=== PATIENT | male | born 1955 | race Two or more races ===

== ENCOUNTER 2021-07-06 06:49 | Inpatient (IN) | payer OTHER ==
[2021-07-06] MEDS ORDERED: GENTAMICIN SO4 80 MG/2 ML VIAL ONE ×2 (07:20→12:44)
[2021-07-06] MEDS ORDERED: LIDOCAINE HCL 1% EPINEPHRINE 1:200,000 30 ML VIAL (PF) ONE ×2 (07:21→10:00)
[2021-07-06] MEDS ORDERED: THROMBIN (BOVINE) 20,000 UNIT VIAL TP ONE ×2 (07:21→12:00)
[2021-07-06] MEDS ORDERED: PROPOFOL 20 ML ONE (08:05)
[2021-07-06] MEDS ORDERED: fentaNYL CITRATE 250 MCG/5 ML VIAL ONE (08:05)
[2021-07-06] MEDS ORDERED: SUCCINYLCHOLINE CHLORIDE 200 MG/10 ML SYRINGE ONE (08:06)
[2021-07-06] MEDS ORDERED: MIDAZOLAM HCL 2 MG/2 ML SINGLE DOSE VIAL ONE (08:07)
[2021-07-06] MEDS ORDERED: ACETAMINOPHEN INJECTION 100 ML IVPB ONE (08:09)
[2021-07-06] MEDS ORDERED: PROMETHAZINE HCL 25 MG/1 ML VIAL IVPB PRN (08:23)
[2021-07-06] MEDS ORDERED: ONDANSETRON 4 MG/2 ML VIAL IVPUSH PRN ×2 (08:23→14:36)
[2021-07-06] MEDS ORDERED: LACTATED RINGERS SOLUTION 1,000 ML IV SCH (08:30)
[2021-07-06] MEDS ORDERED: HYDROGEN PEROXIDE 473 ML PO ONE ×2 (08:33→09:20)
[2021-07-06] MEDS ORDERED: GENTAMICIN SO4 80 MG/2 ML VIAL IVPB ONE ×2 (08:33→09:20)
[2021-07-06] MEDS ORDERED: VANCOMYCIN 1,000 MG VIAL (RESTRICTED TO ID ONLY) IVPB ONE (09:15)
[2021-07-06] MEDS ORDERED: ceFAZolin SODIUM 1 GM VIAL IVPB ONE ×2 (09:15→13:15)
[2021-07-06] MEDS ORDERED: ROCURONIUM BROMIDE 50 MG/5 ML SYRINGE ONE ×2 (09:17→11:58)
[2021-07-06] MEDS ORDERED: LIDOCAINE HCL 0.5% EPINEPHRINE 1:200,000 50 ML VIAL IJ ONE (09:20)
[2021-07-06] MEDS ORDERED: KETAMINE HCL 200 MG/20 ML VIAL ONE (09:21)
[2021-07-06] MEDS ORDERED: BACITRACIN 15 GM TUBE TOPICAL OINTMENT ONE (09:41)
[2021-07-06] MEDS ORDERED: FAMOTIDINE 20 MG/50 ML IVPB 20 MG/50 ML MG IVPB ONE (10:00)
[2021-07-06] MEDS ORDERED: HYDROmorphone HCl 2 MG/ML VIAL ONE (10:34)
[2021-07-06] MEDS ORDERED: THROMBIN (BOVINE) 5,000 UNIT VIAL TP ONE (10:35)
[2021-07-06] MEDS ORDERED: PHENYLEPHRINE HCL 10 MG/1 ML SINGLE DOSE VIAL IVPB ONE (11:30)
[2021-07-06] MEDS ORDERED: NEOSTIGMINE METHYLSULFATE 0.5 MG/1 ML - 10 ML MDV ONE (12:45)
[2021-07-06] MEDS ORDERED: BUPIVACAINE LIPOSOME/PF (EXPAREL) 266 MG/20 ML VIAL ONE (12:51)
[2021-07-06] MEDS ORDERED: BUPIVACAINE HCL/PF 0.5% (5MG/ML) 10 ML VIAL ONE (12:52)
[2021-07-06] MEDS ORDERED: BUPIVACAINE HCL/PF 0.25% (2.5MG/ML) 10 ML VIAL ONE (12:52)
[2021-07-06] MEDS ORDERED: BUPIVACAINE LIPOSOME/PF (EXPAREL) 266 MG/20 ML VIAL NR ONE (13:45)
[2021-07-06] MEDS ORDERED: BUPIVACAINE HCL/PF 0.5% (5 MG/ML) 30 ML VIAL IJ ONE (13:45)
[2021-07-06] MEDS ORDERED: HYDROmorphone *PCA* 10MG/50ML DISP.SYRIN PCA SCH (14:30)
[2021-07-06] MEDS ORDERED: oxyCODONE HCL 5 MG TABLET PO PRN ×2 (14:36→16:00)
[2021-07-06] MEDS ORDERED: DEXAMETHASONE SOD PHOSPHATE 10 MG/1 ML VIAL IVPUSH ONE ×2 (14:36→15:45)
[2021-07-06] MEDS ORDERED: HYDROmorphone HCl 2 MG/ML VIAL SQ PRN (14:36)
[2021-07-06] MEDS ORDERED: HYDROmorphone *PCA* 10MG/50ML DISP.SYRIN PCA ONE (15:15)
[2021-07-06] MEDS ORDERED: DEXAMETHASONE SOD PHOSPHATE 10 MG/1 ML VIAL ONE (15:47)
[2021-07-06] MEDS: LACTATED RINGERS SOLUTION 1,000 ML IV SCH ×2 (18:01→23:07)
[2021-07-06] MEDS: CEFAZOLIN 2 GM in DEXTROSE 5%-WATER - 100 ML IVPB SCH (20:15)
[2021-07-06] MEDS: TIZANIDINE HCL 2 MG TABLET PO SCH (23:02)
[2021-07-06] MEDS: PREGABALIN 100 MG CAPSULE PO SCH (23:02)
[2021-07-07] MEDS: CEFAZOLIN 2 GM in DEXTROSE 5%-WATER - 100 ML IVPB SCH ×2 (02:31→06:55)
[2021-07-07] MEDS: PREGABALIN 100 MG CAPSULE PO SCH ×3 (06:55→21:26)
[2021-07-07] MEDS: LACTATED RINGERS SOLUTION 1,000 ML IV SCH ×2 (06:58→15:34)
[2021-07-07] MEDS ORDERED: PT OWN MED DRAWER 7, Y5N ONE (09:35)
[2021-07-07 11:18] LABS: HEMATOCRIT 31.4 % (35.4-49); HEMOGLOBIN 10.8 GM/dL (11.7-16.9); MCH 31.3 pg (25.7-33.7); MCHC 34.4 g/dl (32.0-35.9); MEAN CELL VOLUME 91.1 fl (80-96); PLATELET COUNT 235 10^3/uL (134-434); RBC 3.45 M/mm3 (4.00-5.60); RDW 12.6 % (11.9-15.9); WHITE BLOOD COUNT 15.7 K/mm3 (4.0-10.0)
[2021-07-07] MEDS: DOCUSATE SODIUM 100 MG CAPSULE (FP) PO SCH ×2 (11:36→21:26)
[2021-07-07] MEDS: CARVEDILOL 6.25 MG TABLET (FP) PO SCH (11:37)
[2021-07-07] MEDS: LOSARTAN POTASSIUM 50 MG TABLET PO SCH (11:37)
[2021-07-07] MEDS: FAMOTIDINE 20 MG TABLET PO SCH (11:37)
[2021-07-07] MEDS: TIZANIDINE HCL 2 MG TABLET PO SCH ×2 (11:38→21:26)
[2021-07-07 11:42] LABS: BLOOD UREA NITROGEN 25.6 mg/dL (7-18); MAGNESIUM 1.5 mg/dL (1.8-2.4)
[2021-07-07 11:45] LABS: CREATININE 1.2 mg/dL (0.55-1.3); PHOSPHOROUS 3.2 mg/dL (2.5-4.9)
[2021-07-07 11:46] LABS: BILIRUBIN,TOTAL 0.4 mg/dL (0.2-1); TOT PROT 5.6 g/dl (6.4-8.2)
[2021-07-07 11:49] LABS: ALBUMIN 2.9 g/dl (3.4-5.0)
[2021-07-07] MEDS ORDERED: ACETAMINOPHEN 1000 MG/100 ML VIAL IVPB PRN ×2 (13:30→13:31)
[2021-07-07] MEDS ORDERED: MAGNESIUM 2GM/50ML STERILE WATER IVPB IVPB ONE (15:00)
[2021-07-07] MEDS ORDERED: HYDROmorphone *PCA* 10MG/50ML DISP.SYRIN PCA SCH (18:15)
[2021-07-07] MEDS: oxyCODONE HCL 5 MG TABLET PO PRN (21:26)
[2021-07-08] MEDS: oxyCODONE HCL 5 MG TABLET PO PRN ×4 (02:33→21:20)
[2021-07-08] MEDS: BENZOCAINE/MENTH/CETYLPYRD CL 1 EACH LOZENGE MM PRN ×2 (02:34→15:20)
[2021-07-08] MEDS: PREGABALIN 100 MG CAPSULE PO SCH ×3 (06:06→21:19)
[2021-07-08 07:49] LABS: HEMATOCRIT 27.6 % (35.4-49); HEMOGLOBIN 9.4 GM/dL (11.7-16.9); MCH 31.2 pg (25.7-33.7); MCHC 34.2 g/dl (32.0-35.9); MEAN CELL VOLUME 91.2 fl (80-96); MEAN PLT VOLUME 8.2 fl (7.5-11.1); PLATELET COUNT 168 10^3/uL (134-434); RBC 3.02 M/mm3 (4.00-5.60); RDW 12.8 % (11.9-15.9); WHITE BLOOD COUNT 9.8 K/mm3 (4.0-10.0)
[2021-07-08 08:06] LABS: BLOOD UREA NITROGEN 16.3 mg/dL (7-18); CALCIUM 7.9 mg/dL (8.5-10.1)
[2021-07-08 08:07] LABS: ALBUMIN 2.7 g/dl (3.4-5.0); MAGNESIUM 2.3 mg/dL (1.8-2.4)
[2021-07-08 08:09] LABS: CREATININE 0.9 mg/dL (0.55-1.3)
[2021-07-08 08:10] LABS: PHOSPHOROUS 1.6 mg/dL (2.5-4.9)
[2021-07-08 08:11] LABS: BILIRUBIN,TOTAL 0.7 mg/dL (0.2-1); TOT PROT 5.1 g/dl (6.4-8.2)
[2021-07-08] MEDS: LOSARTAN POTASSIUM 50 MG TABLET PO SCH (10:36)
[2021-07-08] MEDS: SENNOSIDES 8.6MG TABLET (FP) PO SCH ×2 (10:36→21:19)
[2021-07-08] MEDS: TIZANIDINE HCL 2 MG TABLET PO SCH ×2 (10:36→21:20)
[2021-07-08] MEDS: DOCUSATE SODIUM 100 MG CAPSULE (FP) PO SCH ×2 (10:36→21:19)
[2021-07-08] MEDS: FAMOTIDINE 20 MG TABLET PO SCH (10:37)
[2021-07-08] MEDS: POLYETHYLENE GLYCOL (HEALTHYLAX) 3350 17 GM PACKET PO SCH ×2 (10:37→21:19)
[2021-07-08] MEDS: CARVEDILOL 6.25 MG TABLET (FP) PO SCH (10:37)
[2021-07-08] MEDS: NAPH,MB-DB/K PH,MBDB POWDER PACKET PO SCH ×3 (10:37→21:20)
[2021-07-08 10:42] LABS: VENOUS O2 SATURATION 71.5 % (70-80); VENOUS PCO2 50.9 mmHg (38-52); VENOUS PH 7.386 (7.310-7.410)
[2021-07-08] MEDS ORDERED: oxyCODONE HCL 5 MG TABLET PO PRN (13:20)
[2021-07-08] MEDS ORDERED: IRON SUCROSE INJECTION 200 MG in SODIUM CHLORIDE 90 ML IVPB ONE (15:00)
[2021-07-08] MEDS: HEPARIN NA (PORCINE) 5,000 UNITS/ML 1ML VIAL SQ SCH ×2 (15:20→21:20)
[2021-07-08] MEDS: CEFAZOLIN 1 GM in DEXTROSE 5%-WATER - 1 GM/50 ML IVPB IVPB SCH (18:00)
[2021-07-08] MEDS ORDERED: DEXTROSE 5%-WATER - 50 ML IVPB ONE (18:13)
[2021-07-08] MEDS ORDERED: ceFAZolin SODIUM 1 GM VIAL ONE (18:13)
[2021-07-09] MEDS: CEFAZOLIN 1 GM in DEXTROSE 5%-WATER - 1 GM/50 ML IVPB IVPB SCH ×2 (02:49→09:02)
[2021-07-09] MEDS ORDERED: ceFAZolin SODIUM 1 GM VIAL ONE ×3 (05:07→16:48)
[2021-07-09] MEDS ORDERED: DEXTROSE 5%-WATER - 50 ML IVPB ONE ×3 (05:08→16:48)
[2021-07-09] MEDS: HEPARIN NA (PORCINE) 5,000 UNITS/ML 1ML VIAL SQ SCH ×3 (06:26→21:18)
[2021-07-09] MEDS: oxyCODONE HCL 5 MG TABLET PO PRN (06:27)
[2021-07-09] MEDS: PREGABALIN 100 MG CAPSULE PO SCH ×3 (06:27→21:05)
[2021-07-09] MEDS: NAPH,MB-DB/K PH,MBDB POWDER PACKET PO SCH ×3 (06:27→21:05)
[2021-07-09 08:34] LABS: HEMATOCRIT 26.3 % (35.4-49); HEMOGLOBIN 9.2 GM/dL (11.7-16.9); MCH 31.9 pg (25.7-33.7); MEAN PLT VOLUME 7.8 fl (7.5-11.1); PLATELET COUNT 175 10^3/uL (134-434); RBC 2.89 M/mm3 (4.00-5.60); RDW 12.8 % (11.9-15.9); WHITE BLOOD COUNT 9.6 K/mm3 (4.0-10.0)
[2021-07-09] MEDS ORDERED: SODIUM PHOSPHATE/NA BIPHOS 133 ML ENEMA RC ONE (09:00)
[2021-07-09] MEDS: DOCUSATE SODIUM 100 MG CAPSULE (FP) PO SCH ×2 (09:02→21:05)
[2021-07-09] MEDS: POLYETHYLENE GLYCOL (HEALTHYLAX) 3350 17 GM PACKET PO SCH ×2 (09:02→21:05)
[2021-07-09] MEDS: TIZANIDINE HCL 2 MG TABLET PO SCH ×2 (09:02→21:05)
[2021-07-09] MEDS: FAMOTIDINE 20 MG TABLET PO SCH (09:02)
[2021-07-09] MEDS: LOSARTAN POTASSIUM 50 MG TABLET PO SCH (09:02)
[2021-07-09] MEDS: CARVEDILOL 6.25 MG TABLET (FP) PO SCH (09:02)
[2021-07-09] MEDS: SENNOSIDES 8.6MG TABLET (FP) PO SCH ×2 (09:02→21:05)
[2021-07-09 09:03] LABS: ALBUMIN 2.4 g/dl (3.4-5.0); BLOOD UREA NITROGEN 14.2 mg/dL (7-18); CALCIUM 7.8 mg/dL (8.5-10.1)
[2021-07-09 09:04] LABS: MAGNESIUM 2.2 mg/dL (1.8-2.4)
[2021-07-09 09:06] LABS: CREATININE 0.9 mg/dL (0.55-1.3)
[2021-07-09 09:07] LABS: PHOSPHOROUS 2.6 mg/dL (2.5-4.9)
[2021-07-09 09:08] LABS: BILIRUBIN,TOTAL 0.5 mg/dL (0.2-1); TOT PROT 5.2 g/dl (6.4-8.2)
[2021-07-09] MEDS ORDERED: IRON SUCROSE INJECTION 200 MG in SODIUM CHLORIDE 90 ML IVPB ONE (10:00)
[2021-07-09] MEDS ORDERED: PT OWN MED DRAWER 7, Y5N ONE (11:10)
[2021-07-09] MEDS: DEXTROSE 5%-0.45% SALINE 1,000 ML IV SCH (16:39)
[2021-07-09] MEDS ORDERED: DEXAMETHASONE SOD PHOSPHATE 10 MG/1 ML VIAL IVPUSH ONE (17:52)
[2021-07-09] MEDS ORDERED: ACETAMINOPHEN 1000 MG/100 ML VIAL IVPB PRN (20:17)
[2021-07-09] MEDS: morphine SULFATE 4 MG/ML VIAL IVPUSH PRN (20:33)
[2021-07-09] MEDS: LIDOCAINE 5% TOPICAL PATCH TP SCH (20:51)
[2021-07-09] MEDS: LIDOCAINE PATCH REMOVAL MC SCH (21:05)
[2021-07-10] MEDS: DEXTROSE 5%-0.45% SALINE 1,000 ML IV SCH ×3 (01:40→17:52)
[2021-07-10] MEDS: PREGABALIN 100 MG CAPSULE PO SCH ×3 (05:46→22:34)
[2021-07-10] MEDS: NAPH,MB-DB/K PH,MBDB POWDER PACKET PO SCH ×4 (05:46→22:37)
[2021-07-10] MEDS: HEPARIN NA (PORCINE) 5,000 UNITS/ML 1ML VIAL SQ SCH ×3 (06:28→22:36)
[2021-07-10] MEDS: morphine SULFATE 4 MG/ML VIAL IVPUSH PRN (07:09)
[2021-07-10 08:27] LABS: HEMATOCRIT 25.8 % (35.4-49); HEMOGLOBIN 8.9 GM/dL (11.7-16.9); MCH 31.4 pg (25.7-33.7); MCHC 34.5 g/dl (32.0-35.9); MEAN CELL VOLUME 90.9 fl (80-96); MEAN PLT VOLUME 7.3 fl (7.5-11.1); PLATELET COUNT 181 10^3/uL (134-434); RBC 2.83 M/mm3 (4.00-5.60); RDW 12.6 % (11.9-15.9); WHITE BLOOD COUNT 8.5 K/mm3 (4.0-10.0)
[2021-07-10 09:04] LABS: ALBUMIN 2.4 g/dl (3.4-5.0); BILIRUBIN,TOTAL 0.3 mg/dL (0.2-1); BLOOD UREA NITROGEN 12.8 mg/dL (7-18); CALCIUM 7.3 mg/dL (8.5-10.1); CREATININE 0.8 mg/dL (0.55-1.3); MAGNESIUM 2.3 mg/dL (1.8-2.4); PHOSPHOROUS 2.3 mg/dL (2.5-4.9); TOT PROT 5.4 g/dl (6.4-8.2)
[2021-07-10] MEDS: SENNOSIDES 8.6MG TABLET (FP) PO SCH ×2 (09:49→22:34)
[2021-07-10] MEDS: FAMOTIDINE 20 MG TABLET PO SCH (09:49)
[2021-07-10] MEDS: POLYETHYLENE GLYCOL (HEALTHYLAX) 3350 17 GM PACKET PO SCH ×2 (09:49→22:34)
[2021-07-10] MEDS: TIZANIDINE HCL 2 MG TABLET PO SCH ×2 (09:49→22:34)
[2021-07-10] MEDS: CARVEDILOL 6.25 MG TABLET (FP) PO SCH (09:49)
[2021-07-10] MEDS: DOCUSATE SODIUM 100 MG CAPSULE (FP) PO SCH ×2 (09:49→22:34)
[2021-07-10] MEDS: LOSARTAN POTASSIUM 50 MG TABLET PO SCH (09:49)
[2021-07-10] MEDS: LIDOCAINE 5% TOPICAL PATCH TP SCH (09:51)
[2021-07-10] MEDS: oxyCODONE HCL 5 MG TABLET PO PRN (22:35)
[2021-07-10] MEDS: LIDOCAINE PATCH REMOVAL MC SCH (22:45)
[2021-07-11] MEDS: DEXTROSE 5%-0.45% SALINE 1,000 ML IV SCH ×3 (02:37→11:44)
[2021-07-11] MEDS: HEPARIN NA (PORCINE) 5,000 UNITS/ML 1ML VIAL SQ SCH ×3 (06:17→22:25)
[2021-07-11] MEDS: NAPH,MB-DB/K PH,MBDB POWDER PACKET PO SCH ×3 (06:18→22:25)
[2021-07-11] MEDS: PREGABALIN 100 MG CAPSULE PO SCH ×3 (06:18→22:25)
[2021-07-11 08:58] LABS: BASO % 0.2 % (0-2.0); EOS % 0.1 % (0-4.5); HEMATOCRIT 25.8 % (35.4-49); LYMPH % 9.9 % (8-40); MCH 31.7 pg (25.7-33.7); MCHC 34.9 g/dl (32.0-35.9); MEAN PLT VOLUME 8.2 fl (7.5-11.1); MONO % 9.4 % (3.8-10.2); NEUT % 80.4 % (42.8-82.8); PLATELET COUNT 200 10^3/uL (134-434); RBC 2.83 M/mm3 (4.00-5.60); RDW 12.6 % (11.9-15.9); WHITE BLOOD COUNT 9.2 K/mm3 (4.0-10.0)
[2021-07-11] MEDS: FAMOTIDINE 20 MG TABLET PO SCH (09:13)
[2021-07-11] MEDS: POLYETHYLENE GLYCOL (HEALTHYLAX) 3350 17 GM PACKET PO SCH ×2 (09:13→22:00)
[2021-07-11] MEDS: LIDOCAINE 5% TOPICAL PATCH TP SCH (09:13)
[2021-07-11] MEDS: SENNOSIDES 8.6MG TABLET (FP) PO SCH ×2 (09:13→22:25)
[2021-07-11] MEDS: DOCUSATE SODIUM 100 MG CAPSULE (FP) PO SCH ×2 (09:13→22:25)
[2021-07-11 09:20] LABS: CALCIUM 7.7 mg/dL (8.5-10.1)
[2021-07-11 09:21] LABS: BLOOD UREA NITROGEN 13.5 mg/dL (7-18)
[2021-07-11 09:24] LABS: CREATININE 0.7 mg/dL (0.55-1.3)
[2021-07-11] MEDS: CARVEDILOL 6.25 MG TABLET (FP) PO SCH (09:48)
[2021-07-11] MEDS: LOSARTAN POTASSIUM 50 MG TABLET PO SCH (09:48)
[2021-07-11] MEDS ORDERED: PT OWN MED DRAWER 7, Y5N ONE (10:05)
[2021-07-11] MEDS: TIZANIDINE HCL 2 MG TABLET PO SCH ×2 (11:35→22:25)
[2021-07-11] MEDS: LIDOCAINE PATCH REMOVAL MC SCH (22:00)
[2021-07-11] MEDS: morphine SULFATE 4 MG/ML VIAL IVPUSH PRN (22:26)
[2021-07-12] MEDS: DEXTROSE 5%-0.45% SALINE 1,000 ML IV SCH ×2 (04:00→14:07)
[2021-07-12] MEDS: HEPARIN NA (PORCINE) 5,000 UNITS/ML 1ML VIAL SQ SCH ×3 (06:17→21:54)
[2021-07-12] MEDS: NAPH,MB-DB/K PH,MBDB POWDER PACKET PO SCH ×3 (06:17→21:54)
[2021-07-12] MEDS: PREGABALIN 100 MG CAPSULE PO SCH ×3 (06:17→21:59)
[2021-07-12] MEDS: morphine SULFATE 4 MG/ML VIAL IVPUSH PRN ×2 (06:18→22:00)
[2021-07-12 09:13] LABS: HEMATOCRIT 28.5 % (35.4-49); HEMOGLOBIN 9.9 GM/dL (11.7-16.9); MCH 31.7 pg (25.7-33.7); MCHC 34.6 g/dl (32.0-35.9); MEAN CELL VOLUME 91.5 fl (80-96); MEAN PLT VOLUME 7.7 fl (7.5-11.1); PLATELET COUNT 259 10^3/uL (134-434); RBC 3.12 M/mm3 (4.00-5.60); RDW 12.7 % (11.9-15.9); WHITE BLOOD COUNT 8.1 K/mm3 (4.0-10.0)
[2021-07-12] MEDS ORDERED: PT OWN MED DRAWER 7, Y5N ONE ×2 (09:15→10:13)
[2021-07-12] MEDS: LIDOCAINE 5% TOPICAL PATCH TP SCH (09:27)
[2021-07-12] MEDS: POLYETHYLENE GLYCOL (HEALTHYLAX) 3350 17 GM PACKET PO SCH ×2 (09:27→21:59)
[2021-07-12] MEDS: SENNOSIDES 8.6MG TABLET (FP) PO SCH ×2 (09:27→21:53)
[2021-07-12] MEDS: DOCUSATE SODIUM 100 MG CAPSULE (FP) PO SCH ×2 (09:27→21:53)
[2021-07-12] MEDS: LOSARTAN POTASSIUM 50 MG TABLET PO SCH (09:27)
[2021-07-12] MEDS: FAMOTIDINE 20 MG TABLET PO SCH (09:27)
[2021-07-12] MEDS: CARVEDILOL 6.25 MG TABLET (FP) PO SCH (09:27)
[2021-07-12 09:51] LABS: CALCIUM 7.3 mg/dL (8.5-10.1)
[2021-07-12 09:52] LABS: ALBUMIN 2.4 g/dl (3.4-5.0); MAGNESIUM 1.9 mg/dL (1.8-2.4)
[2021-07-12 09:54] LABS: BILIRUBIN,TOTAL 0.3 mg/dL (0.2-1); TOT PROT 5.5 g/dl (6.4-8.2)
[2021-07-12 09:56] LABS: CREATININE 0.9 mg/dL (0.55-1.3); PHOSPHOROUS 2.8 mg/dL (2.5-4.9)
[2021-07-12] MEDS: TIZANIDINE HCL 2 MG TABLET PO SCH ×2 (10:14→21:54)
[2021-07-12] MEDS: LIDOCAINE PATCH REMOVAL MC SCH (21:54)
[2021-07-12] MEDS ORDERED: amLODIPine BESYLATE 5 MG TABLET (FP) PO ONE (22:34)
[2021-07-13] MEDS: ACETAMINOPHEN 325 MG TABLET (FP) PO PRN (01:11)
[2021-07-13] MEDS: morphine SULFATE 4 MG/ML VIAL IVPUSH PRN ×3 (03:15→23:41)
[2021-07-13] MEDS: HEPARIN NA (PORCINE) 5,000 UNITS/ML 1ML VIAL SQ SCH ×3 (06:20→21:00)
[2021-07-13] MEDS: NAPH,MB-DB/K PH,MBDB POWDER PACKET PO SCH ×3 (06:20→21:00)
[2021-07-13] MEDS: PREGABALIN 100 MG CAPSULE PO SCH ×2 (06:20→14:25)
[2021-07-13 08:51] LABS: HEMATOCRIT 27.9 % (35.4-49); HEMOGLOBIN 9.8 GM/dL (11.7-16.9); MCH 31.8 pg (25.7-33.7); MCHC 35.2 g/dl (32.0-35.9); MEAN CELL VOLUME 90.5 fl (80-96); MEAN PLT VOLUME 7.5 fl (7.5-11.1); PLATELET COUNT 257 10^3/uL (134-434); RBC 3.08 M/mm3 (4.00-5.60); RDW 12.9 % (11.9-15.9); WHITE BLOOD COUNT 7.1 K/mm3 (4.0-10.0)
[2021-07-13 09:09] LABS: ALBUMIN 2.4 g/dl (3.4-5.0)
[2021-07-13 09:10] LABS: BLOOD UREA NITROGEN 10.2 mg/dL (7-18)
[2021-07-13 09:13] LABS: CREATININE 0.7 mg/dL (0.55-1.3)
[2021-07-13 09:14] LABS: BILIRUBIN,TOTAL 0.4 mg/dL (0.2-1); TOT PROT 5.4 g/dl (6.4-8.2)
[2021-07-13 09:19] LABS: CALCIUM 8.6 mg/dL (8.5-10.1)
[2021-07-13] MEDS ORDERED: PT OWN MED DRAWER 7, Y5N ONE ×4 (09:55→20:43)
[2021-07-13] MEDS: FAMOTIDINE 20 MG TABLET PO SCH (09:58)
[2021-07-13] MEDS: SENNOSIDES 8.6MG TABLET (FP) PO SCH ×2 (09:58→21:00)
[2021-07-13] MEDS: DOCUSATE SODIUM 100 MG CAPSULE (FP) PO SCH ×2 (09:58→21:00)
[2021-07-13] MEDS: CARVEDILOL 6.25 MG TABLET (FP) PO SCH (09:58)
[2021-07-13] MEDS: LIDOCAINE 5% TOPICAL PATCH TP SCH (10:02)
[2021-07-13] MEDS: LOSARTAN POTASSIUM 50 MG TABLET PO SCH (10:02)
[2021-07-13] MEDS: POLYETHYLENE GLYCOL (HEALTHYLAX) 3350 17 GM PACKET PO SCH ×2 (10:02→21:00)
[2021-07-13] MEDS: TIZANIDINE HCL 2 MG TABLET PO SCH ×2 (11:51→21:00)
[2021-07-13] MEDS: DEXTROSE 5%-0.45% SALINE 1,000 ML IV SCH ×2 (11:51→17:40)
[2021-07-13 17:27] VITALS: BMI 23.1
[2021-07-13] MEDS: LIDOCAINE PATCH REMOVAL MC SCH (21:00)
[2021-07-14] MEDS: ACETAMINOPHEN 325 MG TABLET (FP) PO PRN (01:55)
[2021-07-14] MEDS: morphine SULFATE 4 MG/ML VIAL IVPUSH PRN ×3 (03:53→16:53)
[2021-07-14] MEDS: HEPARIN NA (PORCINE) 5,000 UNITS/ML 1ML VIAL SQ SCH ×3 (05:45→21:16)
[2021-07-14] MEDS: NAPH,MB-DB/K PH,MBDB POWDER PACKET PO SCH ×3 (05:46→21:06)
[2021-07-14 09:05] LABS: HEMOGLOBIN 10.7 GM/dL (11.7-16.9); MCHC 33.5 g/dl (32.0-35.9); MEAN CELL VOLUME 92.5 fl (80-96); MEAN PLT VOLUME 7.5 fl (7.5-11.1); PLATELET COUNT 329 10^3/uL (134-434); RBC 3.46 M/mm3 (4.00-5.60); RDW 12.9 % (11.9-15.9); WHITE BLOOD COUNT 8.5 K/mm3 (4.0-10.0)
[2021-07-14 09:32] LABS: ALBUMIN 2.7 g/dl (3.4-5.0); BLOOD UREA NITROGEN 10.3 mg/dL (7-18); CALCIUM 8.6 mg/dL (8.5-10.1)
[2021-07-14 09:35] LABS: BILIRUBIN,TOTAL 0.5 mg/dL (0.2-1); CREATININE 0.9 mg/dL (0.55-1.3); TOT PROT 6.1 g/dl (6.4-8.2)
[2021-07-14] MEDS: LIDOCAINE 5% TOPICAL PATCH TP SCH (09:38)
[2021-07-14] MEDS: LOSARTAN POTASSIUM 50 MG TABLET PO SCH (09:39)
[2021-07-14] MEDS: POLYETHYLENE GLYCOL (HEALTHYLAX) 3350 17 GM PACKET PO SCH ×2 (09:39→21:05)
[2021-07-14] MEDS: SENNOSIDES 8.6MG TABLET (FP) PO SCH ×2 (09:39→21:05)
[2021-07-14] MEDS: FAMOTIDINE 20 MG TABLET PO SCH (09:39)
[2021-07-14] MEDS: CARVEDILOL 6.25 MG TABLET (FP) PO SCH (09:39)
[2021-07-14] MEDS: DOCUSATE SODIUM 100 MG CAPSULE (FP) PO SCH ×2 (09:39→21:05)
[2021-07-14] MEDS: TIZANIDINE HCL 2 MG TABLET PO SCH ×2 (09:40→21:58)
[2021-07-14] MEDS: DEXTROSE 5%-0.45% SALINE 1,000 ML IV SCH (11:45)
[2021-07-14] MEDS ORDERED: PT OWN MED DRAWER 7, Y5N ONE (20:45)
[2021-07-14] MEDS: LIDOCAINE PATCH REMOVAL MC SCH (21:08)
[2021-07-15] MEDS: morphine SULFATE 4 MG/ML VIAL IVPUSH PRN (00:04)
[2021-07-15] MEDS: DEXTROSE 5%-0.45% SALINE 1,000 ML IV SCH ×2 (00:31→11:01)
[2021-07-15] MEDS: NAPH,MB-DB/K PH,MBDB POWDER PACKET PO SCH ×2 (05:22→13:19)
[2021-07-15] MEDS: HEPARIN NA (PORCINE) 5,000 UNITS/ML 1ML VIAL SQ SCH ×2 (05:23→13:19)
[2021-07-15] MEDS: POLYETHYLENE GLYCOL (HEALTHYLAX) 3350 17 GM PACKET PO SCH (10:48)
[2021-07-15] MEDS: DOCUSATE SODIUM 100 MG CAPSULE (FP) PO SCH (10:48)
[2021-07-15] MEDS: LOSARTAN POTASSIUM 50 MG TABLET PO SCH (10:48)
[2021-07-15] MEDS: TIZANIDINE HCL 2 MG TABLET PO SCH (10:48)
[2021-07-15] MEDS: SENNOSIDES 8.6MG TABLET (FP) PO SCH (10:48)
[2021-07-15] MEDS: CARVEDILOL 6.25 MG TABLET (FP) PO SCH (10:48)
[2021-07-15] MEDS: LIDOCAINE 5% TOPICAL PATCH TP SCH (10:48)
[2021-07-15] MEDS: FAMOTIDINE 20 MG TABLET PO SCH (10:48)
[2021-07-15 11:18] LABS: HEMATOCRIT 30.6 % (35.4-49); HEMOGLOBIN 10.4 GM/dL (11.7-16.9); MCH 31.3 pg (25.7-33.7); MEAN CELL VOLUME 92.1 fl (80-96); MEAN PLT VOLUME 7.7 fl (7.5-11.1); PLATELET COUNT 341 10^3/uL (134-434); RBC 3.32 M/mm3 (4.00-5.60); RDW 13.2 % (11.9-15.9); WHITE BLOOD COUNT 9.5 K/mm3 (4.0-10.0)
[2021-07-15 11:27] LABS: CALCIUM 8.9 mg/dL (8.5-10.1)
[2021-07-15 11:28] LABS: ALBUMIN 2.7 g/dl (3.4-5.0); MAGNESIUM 2.1 mg/dL (1.8-2.4)
[2021-07-15 11:31] LABS: CREATININE 0.9 mg/dL (0.55-1.3); PHOSPHOROUS 2.9 mg/dL (2.5-4.9)
[2021-07-15 11:37] LABS: BILIRUBIN,TOTAL 0.3 mg/dL (0.2-1)
[2021-07-15] MEDS ORDERED: oxyCODONE HCL 5 MG TABLET PO PRN (11:55)
[2021-07-15 14:48] VITALS: BP 115/79; PULSE 63; TEMP 97.9
== END 2021-07-15 16:14 | disposition home or self-care (01) | DRG 304 ==
LOC: J2C 06:49 → J8W 17:50
PROVIDERS: ADMIT Neurological Surgery; ATTEND Internal Medicine
PROC: 0RG20A0 Fusion of 2 or more Cervical Vertebral Joints with Interbody Fusion Device, Anterior Approach, Anterior Column, Open Approach (ICD-10-PCS; 2021-07-06)
PROC: 0PB30ZZ Excision of Cervical Vertebra, Open Approach (ICD-10-PCS; 2021-07-06)
PROC: 01N10ZZ Release Cervical Nerve, Open Approach (ICD-10-PCS; 2021-07-06)
PROC: 0RB50ZZ Excision of Cervicothoracic Vertebral Disc, Open Approach (ICD-10-PCS; 2021-07-06)
PROC: 0RG4070 Fusion of Cervicothoracic Vertebral Joint with Autologous Tissue Substitute, Anterior Approach, Anterior Column, Open Approach (ICD-10-PCS; 2021-07-06)
PROC: 01N80ZZ Release Thoracic Nerve, Open Approach (ICD-10-PCS; 2021-07-06)
PROC: 0PB40ZZ Excision of Thoracic Vertebra, Open Approach (ICD-10-PCS; 2021-07-06)
PROC: 0RG2071 Fusion of 2 or more Cervical Vertebral Joints with Autologous Tissue Substitute, Posterior Approach, Posterior Column, Open Approach (ICD-10-PCS; 2021-07-06)
PROC: 0RG4071 Fusion of Cervicothoracic Vertebral Joint with Autologous Tissue Substitute, Posterior Approach, Posterior Column, Open Approach (ICD-10-PCS; 2021-07-06)
PROC: 0RG6071 Fusion of Thoracic Vertebral Joint with Autologous Tissue Substitute, Posterior Approach, Posterior Column, Open Approach (ICD-10-PCS; 2021-07-06)
PROC: 0RP10AZ Removal of Interbody Fusion Device from Cervical Vertebral Joint, Open Approach (ICD-10-PCS; principal; 2021-07-06 08:00)
DX: M47.12 Other spondylosis with myelopathy, cervical region (principal); M40.292 Other kyphosis, cervical region; M54.12 Radiculopathy, cervical region; E87.3 Alkalosis; E83.39 Other disorders of phosphorus metabolism; R13.19 Other dysphagia; N28.1 Cyst of kidney, acquired; I10 Essential (primary) hypertension; D50.9 Iron deficiency anemia, unspecified; R74.01 Elevation of levels of liver transaminase levels
CPT/HCPCS: 36415; 72050-TC-FY; 72125-TC; 74230-TC-FY; 76000-TC-FY; 76705-TC; 80048; 80053; 82550; 82553; 82728; 82803; 83036; 83540; 83550; 83735; 84100; 84484; 85025; 85027; 86850; 86900; 86901; 92611-GN; 94760; 97116-GP; 97161-GP; J0131; J1100; J1644; J1756